=== PATIENT | female | born 1980 | race Caucasian/White ===

== ENCOUNTER 2018-09-06 10:04 | Emergency (ER) | payer OTHER ==
[2018-09-06 10:17] VITALS: BP 140/89
[2018-09-06] MEDS ORDERED: IBUPROFEN ONE (12:36)
[2018-09-06] MEDS ORDERED: IBUPROFEN PO ONE (12:41)
--- NOTE | 2018-09-06 13:29 | Emergency Department Report ---
ED ENT HPI - General Chief complaint: Earache Stated complaint: R EAR SWOLLEN/PAIN Time Seen by Provider: 09/06/18 13:24 Source: patient Mode of arrival: Ambulatory Limitations: No Limitations - History of Present Illness Initial comments: 38-year-old female comes in for right ear pain. Patient reports that she has been placed on Keflex eardrops and Tylenol 3. Patient has been given eardrops to the opposite ear. Patient states that the pain is not improved. Patient denies any fever chills no nausea no vomiting. MD complaint: ear pain Onset/Timin -: days(s) Severity scale (0 -10): 10 Quality: stabbing, aching Consistency: constant Improves with: none Worsens with: movement Associated Symptoms: discharge from ear. denies: fever, cough, sore throat - Related Data Previous Rx's Medication Instructions Recorded Last Taken Type Ciprofloxacin 0.2%(Nf) 0.25 ml AD BID #14 droperette 01/08/16 Unknown Rx [Ciprofloxacin OTIC] Ibuprofen [Motrin] 600 mg PO Q8H PRN #30 tablet 01/08/16 Unknown Rx Allergies Allergy/AdvReac Type Severity Reaction Status Date / Time No Known Allergies Allergy Verified 09/06/18 10:06 ED Dental HPI - General Chief complaint: Earache Stated complaint: R EAR SWOLLEN/PAIN Time Seen by Provider: 09/06/18 13:24 Source: patient Mode of arrival: Ambulatory Limitations: No Limitations - Related Data Previous Rx's Medication Instructions Recorded Last Taken Type Ciprofloxacin 0.2%(Nf) 0.25 ml AD BID #14 droperette 01/08/16 Unknown Rx [Ciprofloxacin OTIC] Ibuprofen [Motrin] 600 mg PO Q8H PRN #30 tablet 01/08/16 Unknown Rx Allergies Allergy/AdvReac Type Severity Reaction Status Date / Time No Known Allergies Allergy Verified 09/06/18 10:06 ED Review of Systems ROS: Stated complaint: R EAR SWOLLEN/PAIN Other details as noted in HPI Comment: All other systems reviewed and negative Constitutional: denies: chills, fever ENT: ear pain (right) Respiratory: denies: cough, shortness of breath, wheezing Neurological: denies: headache, weakness, paresthesias ED Past Medical Hx - Past Medical History Additional medical history: kidney stones - Surgical History Additional Surgical History: kidney stones removal - Social History Smoking Status: Current Some Day Smoker Substance Use Type: None - Medications Home Medications: Home Medications Medication Instructions Recorded Confirmed Last Taken Type Ciprofloxacin 0.2%(Nf) 0.25 ml AD BID #14 droperette 01/08/16 Unknown Rx [Ciprofloxacin OTIC] Ibuprofen [Motrin] 600 mg PO Q8H PRN #30 tablet 01/08/16 Unknown Rx ED Physical Exam - General Limitations: No Limitations - Eye Eye exam: Present: normal appearance - Expanded ENT Exam Expanded Ear exam: Present: other (right ear tragus tenderness, or article tenderness external canal edematous mild erythematous) - Respiratory Respiratory exam: Present: normal lung sounds bilaterally. Absent: respiratory distress - Cardiovascular Cardiovascular Exam: Present: regular rate, normal rhythm. Absent: systolic murmur, diastolic murmur, rubs, gallop - Neurological Exam Neurological exam: Present: alert, oriented X3 - Psychiatric Psychiatric exam: Present: normal affect, normal mood - Skin Skin exam: Present: warm, dry, intact, normal color. Absent: rash ED Course Vital Signs 09/06/18 10:14 Temperature 98.8 F Pulse Rate 90 Respiratory 16 Rate Blood Pressure 140/89 O2 Sat by Pulse 98 Oximetry ED Medical Decision Making - Medical Decision Making He has been evaluated by this provider [facility]. Discussed with patient and before that she needs to put the ear drops in the ear that is painful and not the opposite ear. Patient was given ibuprofen for pain management. Patient be discharged home in stable condition and referral to ear nose and throat provider. Critical care attestation.: If time is entered above; I have spent that time in minutes in the direct care of this critically ill patient, excluding procedure time. ED Disposition Clinical Impression: Otitis externa, left Qualifiers: Otitis externa type: swimmer's ear Chronicity: acute Qualified Code(s): H60.332 - Swimmer's ear, left ear Disposition: DC-01 TO HOME OR SELFCARE Is pt being admited?: No Does the pt Need Aspirin: No Condition: Stable Instructions: Otitis Externa (ED) Additional Instructions: Continue with pain medications and antibiotics as prescribed. 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 Referrals: FRANCI SIGALA [Other] - 3-5 Days ABRAHAN MELVIN MD [Staff Physician] - 3-5 Days Forms: Work/School Release Form(ED)
== END 2018-09-06 13:37 | disposition home or self-care (01) ==
LOC: ED 10:04
DX: H66.91 Otitis media, unspecified, right ear (principal); F17.200 Nicotine dependence, unspecified, uncomplicated
CPT/HCPCS: 99282